=== PATIENT | female | born 1980 | race African-American/Black ===

== ENCOUNTER 2018-09-09 19:47 | Emergency (ER) | payer BC ==
[~2018-09-09] VITALS: Ht 172.7 cm; Wt 84.0 kg
[~2018-09-09 19:47] MED LIST: HYDR-523 PO; PNV1TABL76 PO
[2018-09-09] MEDS ORDERED: SODIUM CHLORIDE 0.9% 1,000 ML IV ONE (21:21)
[2018-09-09 22:38] LABS: BASOPHILS % 1.3 % (0.0-2.0); HEMATOCRIT. 33.3 % (36.0-48.0); HEMOGLOBIN. 10.3 g/dL (12.0-16.0); LYMPHOCYTES % 43.9 % (20.0-50.0); MEAN CORPUSCULAR VOLUME 67.7 fL (81.0-99.0); MEAN PLATELET VOLUME 9.1 fl (7.4-10.4); MONOCYTES % 6.5 % (2.0-8.0); NEUTROPHILS % 46.3 % (40.0-76.0); PLATELET 347 x1000/uL (130-400); RED BLOOD CELL COUNT 4.93 mill/uL (4.2-5.4); RED CELL DISTRIBUTION WIDTH 18.1 % (11.6-14.6)
[2018-09-09 22:42] LABS: CHLORIDE 108 mEq/L (98-107)
[2018-09-09] MEDS ORDERED: METOCLOPRAMIDE HCL 10MG/2ML VIAL IV ONE (23:00)
[2018-09-09] MEDS ORDERED: MORPHINE SULFATE 4 MG/ML CPJ (NOT FOR IM USE) IV ONE (23:00)
[2018-09-09 23:04] LABS: HCG SCREEN NEGATIVE
[2018-09-10] MEDS ORDERED: HYDROCODONE/ACETAMINOPHEN 5/325MG TABLET PO ONE (01:45)
[2018-09-10 02:58] VITALS: BP 135/85
== END 2018-09-10 02:59 | disposition home or self-care (01) ==
LOC: ER 20:58
DX: M79.10 Myalgia, unspecified site (principal); D64.9 Anemia, unspecified; D57.1 Sickle-cell disease without crisis; R19.7 Diarrhea, unspecified; Z88.8 Allergy status to other drugs, medicaments and biological substances
CPT/HCPCS: 36415; 80053; 84703; 85025; 85044; 93005; 96374; 96375; 99284; J2270; J2765; J7030

== ENCOUNTER 2018-11-29 17:16 | Emergency (ER) | payer BC ==
[~2018-11-29] VITALS: Ht 172.7 cm; Wt 84.0 kg
[2018-11-29] MEDS ORDERED: KETOROLAC 30MG/ML VIAL IV STA (23:19)
[2018-11-29] MEDS ORDERED: ONDANSETRON HCL 4MG/2ML INJ IV STA (23:19)
[2018-11-29] MEDS ORDERED: SODIUM CHLORIDE 0.9% 1,000 ML IV ONE (23:19)
[2018-11-29] MEDS ORDERED: MORPHINE SULFATE 4 MG/ML CPJ (NOT FOR IM USE) IV STA (23:19)
[2018-11-29 23:35] LABS: BASOPHILS % 1.2 % (0.0-2.0); CHLORIDE 106 mEq/L (98-107); HEMATOCRIT. 30.1 % (36.0-48.0); HEMOGLOBIN. 9.4 g/dL (12.0-16.0); LYMPHOCYTES % 44.1 % (20.0-50.0); MEAN CORPUSCULAR HEMOGLOBIN 21.3 pg (28.0-32.0); MEAN CORPUSCULAR VOLUME 68.3 fL (81.0-99.0); MEAN PLATELET VOLUME 8.9 fl (7.4-10.4); MONOCYTES % 7.1 % (2.0-8.0); NEUTROPHILS % 43.6 % (40.0-76.0); PLATELET 324 x1000/uL (130-400); RED BLOOD CELL COUNT 4.41 mill/uL (4.2-5.4); RED CELL DISTRIBUTION WIDTH 18.1 % (11.6-14.6)
[2018-11-29 23:39] LABS: CLARITY URINE CLEAR (CLEAR); COLOR URINE YELLOW (YELLOW); KETONES URINE NEGATIVE (NEGATIVE); LEUKOCYTE ESTERASE URINE NEGATIVE (NEGATIVE); NITRITE URINE NEGATIVE (NEGATIVE); OCCULT BLOOD URINE NEGATIVE (NEGATIVE); PROTEIN URINE NEGATIVE (NEGATIVE); SPECIFIC GRAVITY URINE 1.014 (1.005-1.030); UROBILINOGEN URINE 0.2 E.U./dL (0.2-1.0)
[2018-11-30 01:46] LABS: PLATELET ESTIMATE NORMAL
[2018-11-30 02:59] VITALS: BP 127/78
[2018-11-30] MEDS ORDERED: MORPHINE SULFATE 4 MG/ML CPJ (NOT FOR IM USE) IV ONE (03:00)
== END 2018-11-30 03:07 | disposition home or self-care (01) ==
LOC: ER 17:16
DX: D57.1 Sickle-cell disease without crisis (principal); M79.7 Fibromyalgia; D64.9 Anemia, unspecified; S92.422A Displaced fracture of distal phalanx of left great toe, initial encounter for closed fracture; W22.8XXA Striking against or struck by other objects, initial encounter; Y93.9 Activity, unspecified; Y92.9 Unspecified place or not applicable
CPT/HCPCS: 36415; 73660; 80053; 81003; 81025; 85025; 96374; 96375; 96376; 99284; J1885; J2270; J2405; J7030; Z7610

== ENCOUNTER 2019-03-06 13:13 | Emergency (ER) | payer BC ==
[~2019-03-06] VITALS: Ht 167.6 cm; Wt 82.0 kg
[2019-03-06] MEDS ORDERED: SODIUM CHLORIDE 0.9% 1,000 ML IV ONE (16:59)
[2019-03-06 18:02] LABS: BASOPHILS % 0.8 % (0.0-2.0); EOSINOPHILS % 3.4 % (0.0-5.0); HEMATOCRIT. 27.8 % (36.0-48.0); HEMOGLOBIN. 8.7 g/dL (12.0-16.0); LYMPHOCYTES % 27.8 % (20.0-50.0); MEAN CORPUSCULAR HEMOGLOBIN 21.3 pg (28.0-32.0); MEAN CORPUSCULAR VOLUME 68.2 fL (81.0-99.0); MEAN PLATELET VOLUME 8.9 fl (7.4-10.4); MONOCYTES % 7.5 % (2.0-8.0); NEUTROPHILS % 60.5 % (40.0-76.0); PLATELET 201 x1000/uL (130-400); RED BLOOD CELL COUNT 4.08 mill/uL (4.2-5.4); RED CELL DISTRIBUTION WIDTH 19.3 % (11.6-14.6)
[2019-03-06 18:05] LABS: CHLORIDE 108 mEq/L (98-107)
[2019-03-06 18:15] LABS: B-HCG QUANTITATIVE < 1 mIU/mL (<3)
[2019-03-06] MEDS ORDERED: ONDANSETRON HCL 4MG/2ML INJ IV STA (18:17)
[2019-03-06] MEDS ORDERED: MORPHINE SULFATE 4 MG/ML CPJ (NOT FOR IM USE) IV STA (18:17)
[2019-03-06 18:22] LABS: PLATELET ESTIMATE NORMAL
[2019-03-06 18:49] LABS: CLARITY URINE CLOUDY (CLEAR); COLOR URINE YELLOW (YELLOW); KETONES URINE TRACE (NEGATIVE); LEUKOCYTE ESTERASE URINE NEGATIVE (NEGATIVE); NITRITE URINE NEGATIVE (NEGATIVE); OCCULT BLOOD URINE 3+ (NEGATIVE); PH URINE 5.5 (4.5-8.0); PROTEIN URINE 1+ (NEGATIVE); SPECIFIC GRAVITY URINE 1.033 (1.005-1.030); UROBILINOGEN URINE 0.2 E.U./dL (0.2-1.0)
[2019-03-06] MEDS ORDERED: ACETAMINOPHEN WITH CODEINE 300/30MG TABLET PO ONE (19:30)
[2019-03-06] MEDS ORDERED: MORPHINE SULFATE 2 MG/ML CPJ (NOT FOR IM USE) IV ONE (20:00)
[2019-03-06 20:33] VITALS: BP 155/98
== END 2019-03-06 20:35 | disposition home or self-care (01) ==
LOC: ER 13:13
DX: N93.8 Other specified abnormal uterine and vaginal bleeding (principal); M79.10 Myalgia, unspecified site; Z79.899 Other long term (current) drug therapy
CPT/HCPCS: 36415; 76830; 76856; 80053; 81003; 84702; 85025; 85044; 86850; 86900; 86901; 96374; 96375; 96376; 99284; J2270; J2405; J7030; Z7610

== ENCOUNTER 2019-05-30 13:36 | Emergency (ER) | payer BC ==
[~2019-05-30] VITALS: Ht 172.7 cm; Wt 86.8 kg
[2019-05-30 13:43] VITALS: BP 124/68
[2019-05-30] MEDS ORDERED: HYDROCODONE/ACETAMINOPHEN 5/325MG TABLET PO ONE (14:45)
[2019-05-30 15:21] LABS: BASOPHILS % 0.9 % (0.0-2.0); EOSINOPHILS % 1.3 % (0.0-5.0); HEMATOCRIT. 29.3 % (36.0-48.0); HEMOGLOBIN. 9.1 g/dL (12.0-16.0); LYMPHOCYTES % 19.2 % (20.0-50.0); MEAN CORPUSCULAR HEMOGLOBIN 21.1 pg (28.0-32.0); MEAN CORPUSCULAR VOLUME 67.7 fL (81.0-99.0); MEAN PLATELET VOLUME 8.4 fl (7.4-10.4); MONOCYTES % 8.5 % (2.0-8.0); NEUTROPHILS % 70.1 % (40.0-76.0); PLATELET 139 x1000/uL (130-400); RED BLOOD CELL COUNT 4.33 mill/uL (4.2-5.4); RED CELL DISTRIBUTION WIDTH 18.6 % (11.6-14.6)
[2019-05-30 15:25] LABS: CHLORIDE 106 mEq/L (98-107)
[2019-05-30] MEDS ORDERED: ONDANSETRON 4MG ODT PO ONE (15:45)
[2019-05-30] MEDS ORDERED: MORPHINE SULFATE 10 MG/ML CPJ IM ONE (15:45)
[2019-05-30 15:47] LABS: PLATELET ESTIMATE NORMAL
[2019-05-30] MEDS ORDERED: ONDANSETRON HCL 4MG/2ML INJ IV ONE (17:45)
[2019-05-30] MEDS ORDERED: MORPHINE SULFATE 4 MG/ML CPJ (NOT FOR IM USE) IV ONE (17:45)
== END 2019-05-30 18:29 | disposition home or self-care (01) ==
LOC: ER 13:36
DX: S92.514A Nondisplaced fracture of proximal phalanx of right lesser toe(s), initial encounter for closed fracture (principal); M79.10 Myalgia, unspecified site; D57.40 Sickle-cell thalassemia without crisis; Z98.890 Other specified postprocedural states; W18.31XA Fall on same level due to stepping on an object, initial encounter; Y93.89 Activity, other specified; Y92.018 Other place in single-family (private) house as the place of occurrence of the external cause
CPT/HCPCS: 36415; 73630; 80053; 85025; 85044; 96374; 96375; 99284; J2270; J2405; Z7610; Q0162

== ENCOUNTER 2019-06-19 11:55 | Emergency (ER) | payer BC ==
[~2019-06-19] VITALS: Ht 172.7 cm; Wt 75.0 kg
[~2019-06-19 11:55] MED LIST changes: -PNV1TABL76 PO
[2019-06-19] MEDS ORDERED: MORPHINE SULFATE 4 MG/ML CPJ (NOT FOR IM USE) IV STA (12:23)
[2019-06-19] MEDS ORDERED: ONDANSETRON HCL 4MG/2ML INJ IV STA (12:23)
[2019-06-19] MEDS ORDERED: SODIUM CHLORIDE 0.9% 1,000 ML IV ONE (12:23)
[2019-06-19 13:52] LABS: BASOPHILS % 2.4 % (0.0-2.0); EOSINOPHILS % 1.7 % (0.0-5.0); HEMATOCRIT. 30.3 % (36.0-48.0); HEMOGLOBIN. 9.4 g/dL (12.0-16.0); LYMPHOCYTES % 35.2 % (20.0-50.0); MEAN CORPUSCULAR VOLUME 67.5 fL (81.0-99.0); MEAN PLATELET VOLUME 9.3 fl (7.4-10.4); MONOCYTES % 5.6 % (2.0-8.0); NEUTROPHILS % 55.1 % (40.0-76.0); PLATELET 297 x1000/uL (130-400); RED BLOOD CELL COUNT 4.49 mill/uL (4.2-5.4); RED CELL DISTRIBUTION WIDTH 18.6 % (11.6-14.6)
[2019-06-19 13:58] LABS: CHLORIDE 109 mEq/L (98-107)
[2019-06-19 14:11] LABS: HCG SCREEN NEGATIVE
[2019-06-19 14:29] LABS: PLATELET ESTIMATE NORMAL
[2019-06-19 14:33] LABS: CLARITY URINE CLEAR (CLEAR); COLOR URINE YELLOW (YELLOW); KETONES URINE NEGATIVE (NEGATIVE); LEUKOCYTE ESTERASE URINE 1+ (NEGATIVE); NITRITE URINE NEGATIVE (NEGATIVE); OCCULT BLOOD URINE NEGATIVE (NEGATIVE); PH URINE 5.5 (4.5-8.0); PROTEIN URINE NEGATIVE (NEGATIVE); SPECIFIC GRAVITY URINE 1.023 (1.005-1.030); UROBILINOGEN URINE 0.2 E.U./dL (0.2-1.0)
[2019-06-19] MEDS ORDERED: KETOROLAC 30MG/ML VIAL IV ONE (14:45)
[2019-06-19 15:01] LABS: INR 1.1; PROTHROMBIN TIME 11.6 sec (9.6-11.0)
[2019-06-19 15:10] LABS: *AMPHETAMINES SCREEN URINE NEGATIVE (NEGATIVE); *BARBITURATES SCREEN URINE NEGATIVE (NEGATIVE); *COCAINE SCREEN URINE NEGATIVE (NEGATIVE); METHADONE URINE SCREEN NEGATIVE (NEGATIVE)
[2019-06-19 15:11] LABS: CANNABINOID URINE SCREEN NEGATIVE (NEGATIVE); PHENCYCLIDINE URINE SCREEN NEGATIVE (NEGATIVE)
[2019-06-19 15:21] LABS: *BENZODIAZEPINES SCREEN URINE PRESUMTIVE POSITIVE (NEGATIVE); OPIATES URINE SCREEN PRESUMTIVE POSITIVE (NEGATIVE)
[2019-06-19] MEDS ORDERED: MORPHINE SULFATE 4 MG/ML CPJ (NOT FOR IM USE) IV ONE (16:00)
[2019-06-19] MEDS ORDERED: ONDANSETRON HCL 4MG/2ML INJ IV ONE (16:00)
[2019-06-19 16:38] VITALS: BP 120/69
== END 2019-06-19 16:57 | disposition home or self-care (01) ==
LOC: ER 11:55
DX: D57.00 Hb-SS disease with crisis, unspecified (principal); N39.0 Urinary tract infection, site not specified; G89.29 Other chronic pain; D64.9 Anemia, unspecified; R07.9 Chest pain, unspecified
CPT/HCPCS: 36415; 71045; 80053; 80305; 81003; 83690; 84484; 84703; 85025; 85044; 85610; 93005; 96374; 96375; 96376; 99285; J1885; J2270; J2405; J7030

== ENCOUNTER 2019-06-20 19:10 | Emergency (ER) | payer BC ==
[~2019-06-20] VITALS: Ht 172.7 cm; Wt 84.6 kg
[2019-06-20] MEDS ORDERED: HYDROCODONE/ACETAMINOPHEN 5/325MG TABLET PO STA (20:13)
[2019-06-20 20:41] LABS: CLARITY URINE CLOUDY (CLEAR); COLOR URINE YELLOW (YELLOW); KETONES URINE TRACE (NEGATIVE); LEUKOCYTE ESTERASE URINE 1+ (NEGATIVE); NITRITE URINE NEGATIVE (NEGATIVE); OCCULT BLOOD URINE NEGATIVE (NEGATIVE); PH URINE 5.5 (4.5-8.0); PROTEIN URINE 1+ (NEGATIVE); SPECIFIC GRAVITY URINE 1.031 (1.005-1.030); UROBILINOGEN URINE 0.2 E.U./dL (0.2-1.0)
[2019-06-20 20:47] LABS: BASOPHILS % 1.2 % (0.0-2.0); EOSINOPHILS % 3.4 % (0.0-5.0); HEMATOCRIT. 27.8 % (36.0-48.0); HEMOGLOBIN. 8.6 g/dL (12.0-16.0); LYMPHOCYTES % 34.7 % (20.0-50.0); MEAN CORPUSCULAR HEMOGLOBIN 20.7 pg (28.0-32.0); MEAN CORPUSCULAR VOLUME 66.7 fL (81.0-99.0); MEAN PLATELET VOLUME 7.8 fl (7.4-10.4); MONOCYTES % 6.4 % (2.0-8.0); NEUTROPHILS % 54.3 % (40.0-76.0); PLATELET 213 x1000/uL (130-400); RED BLOOD CELL COUNT 4.17 mill/uL (4.2-5.4); RED CELL DISTRIBUTION WIDTH 18.6 % (11.6-14.6)
[2019-06-20 20:51] LABS: CHLORIDE 108 mEq/L (98-107)
[2019-06-20 21:08] LABS: PLATELET ESTIMATE NORMAL
[2019-06-20] MEDS ORDERED: KETOROLAC 60MG/2ML VIAL IM ONE (22:15)
[2019-06-20 23:19] VITALS: BP 130/66
== END 2019-06-20 23:20 | disposition home or self-care (01) ==
LOC: ER 19:10
DX: N30.00 Acute cystitis without hematuria (principal); D57.00 Hb-SS disease with crisis, unspecified; M79.7 Fibromyalgia
CPT/HCPCS: 36415; 80053; 81003; 81025; 85025; 85044; 85660; 99283; J1885

== ENCOUNTER 2019-07-22 19:46 | Emergency (ER) | payer BC ==
[~2019-07-22] VITALS: Ht 172.7 cm; Wt 85.0 kg
[2019-07-22 22:12] LABS: BASOPHILS % 1.4 % (0.0-2.0); EOSINOPHILS % 1.8 % (0.0-5.0); HEMOGLOBIN. 9.5 g/dL (12.0-16.0); LYMPHOCYTES % 34.4 % (20.0-50.0); MEAN CORPUSCULAR HEMOGLOBIN 21.6 pg (28.0-32.0); MEAN CORPUSCULAR VOLUME 68.6 fL (81.0-99.0); MEAN PLATELET VOLUME 10.3 fl (7.4-10.4); MONOCYTES % 7.3 % (2.0-8.0); NEUTROPHILS % 55.1 % (40.0-76.0); PLATELET 214 x1000/uL (130-400); RED BLOOD CELL COUNT 4.37 mill/uL (4.2-5.4); RED CELL DISTRIBUTION WIDTH 20.4 % (11.6-14.6)
[2019-07-22 22:13] LABS: CLARITY URINE CLEAR (CLEAR); COLOR URINE YELLOW (YELLOW); KETONES URINE TRACE (NEGATIVE); LEUKOCYTE ESTERASE URINE NEGATIVE (NEGATIVE); NITRITE URINE NEGATIVE (NEGATIVE); OCCULT BLOOD URINE NEGATIVE (NEGATIVE); PH URINE 7.5 (4.5-8.0); PROTEIN URINE NEGATIVE (NEGATIVE)
[2019-07-22 22:15] LABS: CHLORIDE 109 mEq/L (98-107)
[2019-07-22] MEDS ORDERED: KETOROLAC 30MG/ML VIAL IV ONE (22:30)
[2019-07-22] MEDS ORDERED: MORPHINE SULFATE 4 MG/ML CPJ (NOT FOR IM USE) IV ONE (22:30)
[2019-07-22 22:35] LABS: PLATELET ESTIMATE NORMAL
[2019-07-23] MEDS ORDERED: MORPHINE SULFATE 4 MG/ML CPJ (NOT FOR IM USE) IV ONE
[2019-07-23 01:12] VITALS: BP 131/95
== END 2019-07-23 01:11 | disposition home or self-care (01) ==
LOC: ER 19:46
DX: D57.419 Sickle-cell thalassemia, unspecified, with crisis (principal); R03.0 Elevated blood-pressure reading, without diagnosis of hypertension
CPT/HCPCS: 36415; 80053; 81003; 81025; 85025; 85044; 96374; 96375; 96376; 99285; J1885; J2270; 99284

== ENCOUNTER 2019-07-25 02:09 | Emergency (ER) | payer BC ==
[~2019-07-25] VITALS: Ht 172.7 cm; Wt 85.0 kg
[2019-07-25 04:55] LABS: BASOPHILS % 1.2 % (0.0-2.0); EOSINOPHILS % 1.4 % (0.0-5.0); HEMATOCRIT. 24.2 % (36.0-48.0); HEMOGLOBIN. 7.6 g/dL (12.0-16.0); LYMPHOCYTES % 45.2 % (20.0-50.0); MEAN CORPUSCULAR HEMOGLOBIN 21.3 pg (28.0-32.0); MEAN CORPUSCULAR VOLUME 67.6 fL (81.0-99.0); MEAN PLATELET VOLUME 8.8 fl (7.4-10.4); MONOCYTES % 8.4 % (2.0-8.0); NEUTROPHILS % 43.8 % (40.0-76.0); PLATELET 149 x1000/uL (130-400); RED BLOOD CELL COUNT 3.58 mill/uL (4.2-5.4); RED CELL DISTRIBUTION WIDTH 19.9 % (11.6-14.6)
[2019-07-25 04:58] LABS: CHLORIDE 110 mEq/L (98-107)
[2019-07-25 05:01] LABS: PLATELET ESTIMATE NORMAL
[2019-07-25 05:15] LABS: CLARITY URINE CLEAR (CLEAR); COLOR URINE YELLOW (YELLOW); KETONES URINE NEGATIVE (NEGATIVE); LEUKOCYTE ESTERASE URINE NEGATIVE (NEGATIVE); NITRITE URINE NEGATIVE (NEGATIVE); OCCULT BLOOD URINE NEGATIVE (NEGATIVE); PROTEIN URINE NEGATIVE (NEGATIVE); SPECIFIC GRAVITY URINE 1.013 (1.005-1.030); UROBILINOGEN URINE 0.2 E.U./dL (0.2-1.0)
[2019-07-25] MEDS ORDERED: KETOROLAC 30MG/ML VIAL IV ONE (05:15)
[2019-07-25] MEDS ORDERED: MORPHINE SULFATE 4 MG/ML CPJ (NOT FOR IM USE) IV ONE (06:00)
[2019-07-25 06:24] VITALS: BP 122/82
== END 2019-07-25 06:30 | disposition home or self-care (01) ==
LOC: ER 02:09
DX: D57.419 Sickle-cell thalassemia, unspecified, with crisis (principal); Z98.890 Other specified postprocedural states; Z79.899 Other long term (current) drug therapy
CPT/HCPCS: 36415; 80053; 81003; 81025; 85025; 85044; 96374; 96375; 99284; J1885; J2270

== ENCOUNTER 2019-12-30 12:26 | Emergency (ER) | payer BC ==
[~2019-12-30] VITALS: Ht 172.7 cm; Wt 84.0 kg
[2019-12-30] MEDS ORDERED: ONDANSETRON 4MG ODT PO STA (14:35)
[2019-12-30] MEDS ORDERED: KETOROLAC 60MG/2ML VIAL IM STA (14:35)
[2019-12-30] MEDS ORDERED: SODIUM CHLORIDE 0.9% 1,000 ML IV ONE (14:45)
[2019-12-30] MEDS ORDERED: MORPHINE SULFATE 10 MG/ML CPJ IM ONE (14:45)
[2019-12-30 15:32] LABS: CLARITY URINE CLOUDY (CLEAR); COLOR URINE ORANGE (YELLOW); KETONES URINE NEGATIVE (NEGATIVE); LEUKOCYTE ESTERASE URINE 1+ (NEGATIVE); NITRITE URINE NEGATIVE (NEGATIVE); OCCULT BLOOD URINE 3+ (NEGATIVE); PH URINE 8.5 (4.5-8.0); PROTEIN URINE 2+ (NEGATIVE); SPECIFIC GRAVITY URINE 1.026 (1.005-1.030)
[2019-12-30 16:01] LABS: BASOPHILS % 1.2 % (0.0-2.0); EOSINOPHILS % 2.7 % (0.0-5.0); HEMATOCRIT. 25.3 % (36.0-48.0); LYMPHOCYTES % 39.6 % (20.0-50.0); MEAN CORPUSCULAR HEMOGLOBIN 21.3 pg (28.0-32.0); MEAN CORPUSCULAR VOLUME 67.2 fL (81.0-99.0); MEAN PLATELET VOLUME 10.2 fl (7.4-10.4); MONOCYTES % 5.8 % (2.0-8.0); NEUTROPHILS % 50.7 % (40.0-76.0); PLATELET 267 x1000/uL (130-400); RED BLOOD CELL COUNT 3.77 mill/uL (4.2-5.4); RED CELL DISTRIBUTION WIDTH 21.4 % (11.6-14.6)
[2019-12-30 16:05] LABS: CHLORIDE 111 mEq/L (98-107)
[2019-12-30] MEDS ORDERED: DIPHENHYDRAMINE 50MG/ML VIAL IV NR (16:30)
[2019-12-30 16:34] LABS: HCG SCREEN NEGATIVE
[2019-12-30] MEDS ORDERED: MORPHINE SULFATE 4 MG/ML CPJ (NOT FOR IM USE) IV ONE (17:45)
[2019-12-30 18:02] LABS: PLATELET ESTIMATE NORMAL
[2019-12-30 18:30] VITALS: BP 125/82
== END 2019-12-30 18:55 | disposition home or self-care (01) ==
LOC: ER 12:41
DX: M79.18 Myalgia, other site (principal); M54.31 Sciatica, right side; D64.9 Anemia, unspecified
CPT/HCPCS: 36415; 80053; 81003; 81025; 84703; 85025; 85044; 96361; 96372; 96374; 96375; 99284; J1200; J1885; J2270; J7030; Q0162

== ENCOUNTER 2020-01-30 01:47 | Emergency (ER) | payer BC ==
[~2020-01-30] VITALS: Ht 172.7 cm; Wt 82.0 kg
[2020-01-30 02:43] VITALS: BP 117/68
[2020-01-30] MEDS ORDERED: HYDROCODONE/ACETAMINOPHEN 10/325MG TABLET PO ONE (04:00)
== END 2020-01-30 05:10 | disposition left against medical advice (07) ==
LOC: ER 01:47
DX: D57.00 Hb-SS disease with crisis, unspecified (principal); M79.7 Fibromyalgia
CPT/HCPCS: 99282

== ENCOUNTER 2020-02-28 15:30 | Inpatient (IN) | payer BC ==
[~2020-02-28] VITALS: Ht 172.7 cm; Wt 81.6 kg
[2020-02-28] MEDS: LORAZEPAM 2MG/ML CPJ IV PRN
[2020-02-28 17:22] LABS: HEMATOCRIT. 24.4 % (36.0-48.0); HEMOGLOBIN. 7.5 g/dL (12.0-16.0); MEAN CORPUSCULAR HEMOGLOBIN 20.8 pg (28.0-32.0); MEAN CORPUSCULAR VOLUME 67.4 fL (81.0-99.0); MEAN PLATELET VOLUME 8.7 fl (7.4-10.4); PLATELET 240 x1000/uL (130-400); RED BLOOD CELL COUNT 3.62 mill/uL (4.2-5.4); RED CELL DISTRIBUTION WIDTH 20.1 % (11.6-14.6)
[2020-02-28 17:30] LABS: CHLORIDE 108 mEq/L (98-107); HCG SCREEN NEGATIVE
[2020-02-28 17:38] LABS: PROTHROMBIN TIME 10.5 sec (9.6-11.0)
[2020-02-28 17:58] LABS: PLATELET ESTIMATE NORMAL
[2020-02-28] MEDS ORDERED: ONDANSETRON HCL 4MG/2ML INJ IV STA (18:02)
[2020-02-28] MEDS ORDERED: MORPHINE SULFATE 4 MG/ML CPJ (NOT FOR IM USE) IV STA (18:02)
[2020-02-28] MEDS ORDERED: DIPHENHYDRAMINE 25MG CAPSULE PO ONE (19:15)
[2020-02-28] MEDS: MORPHINE SULFATE 4 MG/ML CPJ (NOT FOR IM USE) IV PRN (21:27)
[2020-02-28] MEDS: DIPHENHYDRAMINE 50MG/ML VIAL IV PRN (21:28)
[2020-02-28] MEDS: HYDROCODONE/ACETAMINOPHEN 10/325MG TABLET PO PRN (21:41)
[2020-02-29] MEDS: DIPHENHYDRAMINE 50MG/ML VIAL IV PRN ×2 (01:41→06:43)
[2020-02-29] MEDS: MORPHINE SULFATE 4 MG/ML CPJ (NOT FOR IM USE) IV PRN ×3 (01:41→10:59)
[2020-02-29] MEDS: LORAZEPAM 2MG/ML CPJ IV PRN ×2 (01:43→05:48)
[2020-02-29] MEDS: HYDROCODONE/ACETAMINOPHEN 10/325MG TABLET PO PRN ×3 (04:41→09:17)
[2020-02-29] MEDS ORDERED: SODIUM CHLORIDE 0.45% 1,000 ML IV SCH (11:00)
[2020-02-29] MEDS ORDERED: HYDROMORPHONE HCL/PF 2MG/ML CPJ IV NR (11:00)
[2020-02-29] MEDS ORDERED: FOLIC ACID 1MG TABLET PO SCH (11:00)
[2020-02-29 12:00] VITALS: BP 131/93
[2020-02-29 12:30] VITALS: BP 131/93
[2020-02-29 12:57] VITALS: BP 131/93
[2020-02-29] MEDS ORDERED: DIPHENHYDRAMINE 50MG CAPSULE PO PRN (14:00)
== END 2020-02-29 14:00 | disposition left against medical advice (07) | DRG 812 ==
LOC: ER 15:30 → MICUSO 19:09 → 6EST 02-29 11:20
PROVIDERS: ADMIT Internal Medicine; ATTEND Internal Medicine
DX: D57.00 Hb-SS disease with crisis, unspecified (principal); E87.8 Other disorders of electrolyte and fluid balance, not elsewhere classified; M79.7 Fibromyalgia; N92.0 Excessive and frequent menstruation with regular cycle; Z76.5 Malingerer [conscious simulation]; Z79.891 Long term (current) use of opiate analgesic; Z79.899 Other long term (current) drug therapy
CPT/HCPCS: 36415; 80053; 84703; 85025; 85044; 99285; J1170; J1200; J2060; J2270; J2405; Q0163

== ENCOUNTER 2020-06-02 08:16 | Emergency (ER) | payer BC ==
[~2020-06-02] VITALS: Ht 172.7 cm; Wt 86.0 kg
[2020-06-02] MEDS ORDERED: MORPHINE SULFATE 4 MG/ML CPJ (NOT FOR IM USE) IV STA (08:31)
[2020-06-02] MEDS ORDERED: ONDANSETRON HCL 4MG/2ML INJ IV STA (08:31)
[2020-06-02] MEDS ORDERED: ACETAMINOPHEN 325MG TABLET PO STA (08:31)
[2020-06-02] MEDS ORDERED: SODIUM CHLORIDE 0.9% 1000ML BAG (SEPSIS BOLUS) IV ONE (08:45)
[2020-06-02 09:26] LABS: BASOPHILS % 1.2 % (0.0-2.0); EOSINOPHILS % 1.4 % (0.0-5.0); HEMATOCRIT. 29.3 % (36.0-48.0); HEMOGLOBIN. 8.8 g/dL (12.0-16.0); LYMPHOCYTES % 38.2 % (20.0-50.0); MEAN CORPUSCULAR HEMOGLOBIN 19.6 pg (28.0-32.0); MEAN CORPUSCULAR VOLUME 65.4 fL (81.0-99.0); MEAN PLATELET VOLUME 8.4 fl (7.4-10.4); NEUTROPHILS % 53.2 % (40.0-76.0); PLATELET 477 x1000/uL (130-400); RED BLOOD CELL COUNT 4.48 mill/uL (4.2-5.4)
[2020-06-02 10:36] LABS: CLARITY URINE CLOUDY (CLEAR); COLOR URINE YELLOW (YELLOW); KETONES URINE NEGATIVE (NEGATIVE); LEUKOCYTE ESTERASE URINE TRACE (NEGATIVE); NITRITE URINE NEGATIVE (NEGATIVE); OCCULT BLOOD URINE NEGATIVE (NEGATIVE); PROTEIN URINE NEGATIVE (NEGATIVE); SPECIFIC GRAVITY URINE 1.011 (1.005-1.030); UROBILINOGEN URINE 0.2 E.U./dL (0.2-1.0)
[2020-06-02 10:37] LABS: PLATELET ESTIMATE INCREASED
[2020-06-02 10:43] LABS: CHLORIDE 112 mEq/L (98-107)
[2020-06-02] MEDS ORDERED: NITROFURANTOIN 100MG M/M CAPSULE PO ONE (10:45)
[2020-06-02 11:15] VITALS: BP 127/92
[2020-06-02] MEDS ORDERED: MORPHINE SULFATE 4 MG/ML CPJ (NOT FOR IM USE) IV ONE (11:15)
[2020-06-02] MEDS ORDERED: NITR-87 MT (11:23)
== END 2020-06-02 12:20 | disposition home or self-care (01) ==
LOC: ER 08:16 → CANBEDREQ 11:41 → ER 12:20
DX: D57.00 Hb-SS disease with crisis, unspecified (principal); N39.0 Urinary tract infection, site not specified; R07.89 Other chest pain; M79.602 Pain in left arm; M79.601 Pain in right arm; M79.7 Fibromyalgia
CPT/HCPCS: 36415; 80053; 81003; 83605; 84145; 84484; 85025; 85044; 85610; 86850; 86900; 86901; 87040; 87086; 93005; 96361; 96374; 96375; 96376; 99284; C9803; J2270; J2405; J7030; J7040; U0003

== ENCOUNTER 2020-10-27 13:54 | Emergency (ER) | payer BC ==
[~2020-10-27] VITALS: Ht 165.1 cm; Wt 77.0 kg
[~2020-10-27 13:54] MED LIST changes: +NITR-87 MT
[2020-10-27] MEDS ORDERED: MORPHINE SULFATE 4 MG/ML CPJ (NOT FOR IM USE) IV STA (16:10)
[2020-10-27] MEDS ORDERED: ONDANSETRON HCL 4MG/2ML INJ IV STA (16:10)
[2020-10-27] MEDS ORDERED: SODIUM CHLORIDE 0.9% 1,000 ML IV ONE (16:15)
[2020-10-27] MEDS ORDERED: MORPHINE SULFATE 2 MG/ML CPJ (NOT FOR IM USE) IV NR (16:35)
[2020-10-27 16:49] LABS: CHLORIDE 111 mEq/L (98-107)
[2020-10-27 16:51] LABS: BASOPHILS % 1.1 % (0.0-2.0); EOSINOPHILS % 2.4 % (0.0-5.0); HEMOGLOBIN. 9.7 g/dL (12.0-16.0); MEAN CORPUSCULAR HEMOGLOBIN 20.3 pg (28.0-32.0); MEAN CORPUSCULAR VOLUME 64.7 fL (81.0-99.0); MEAN PLATELET VOLUME 9.9 fl (7.4-10.4); MONOCYTES % 6.5 % (2.0-8.0); PLATELET 300 x1000/uL (130-400); RED BLOOD CELL COUNT 4.79 mill/uL (4.2-5.4); RED CELL DISTRIBUTION WIDTH 19.7 % (11.6-14.6)
[2020-10-27 16:54] LABS: HCG SCREEN NEGATIVE
[2020-10-27 17:14] LABS: PLATELET ESTIMATE NORMAL
[2020-10-27] MEDS ORDERED: DIPHENHYDRAMINE 50MG/ML VIAL IV ONE (17:15)
[2020-10-27] MEDS ORDERED: HYDROCODONE/ACETAMINOPHEN 5/325MG TABLET PO ONE (17:45)
[2020-10-27 18:22] VITALS: BP 150/100
== END 2020-10-27 18:25 | disposition home or self-care (01) ==
LOC: ER 13:54
DX: M79.7 Fibromyalgia (principal); D57.1 Sickle-cell disease without crisis; Z88.5 Allergy status to narcotic agent
CPT/HCPCS: 36415; 80053; 84703; 85025; 85044; 96374; 96375; 99284; J1200; J2270; J2405; J7030

== ENCOUNTER 2021-03-29 13:58 | Emergency (ER) | payer BC ==
[~2021-03-29] VITALS: Ht 172.7 cm; Wt 91.0 kg
[2021-03-29] MEDS ORDERED: SODIUM CHLORIDE 0.9% 1,000 ML IV ONE (14:15)
[2021-03-29] MEDS ORDERED: MORPHINE SULFATE 4 MG/ML CPJ (NOT FOR IM USE) IV STA (14:32)
[2021-03-29] MEDS ORDERED: ONDANSETRON HCL 4MG/2ML INJ IV STA (14:32)
[2021-03-29] MEDS ORDERED: KETOROLAC 30MG/ML VIAL IV STA (14:32)
[2021-03-29] MEDS ORDERED: DIPHENHYDRAMINE 50MG/ML VIAL IV ONE ×2 (14:45→17:30)
[2021-03-29 16:18] LABS: BASOPHILS % 0.6 % (0.0-2.0); EOSINOPHILS % 0.4 % (0.0-5.0); HEMOGLOBIN. 9.5 g/dL (12.0-16.0); LYMPHOCYTES % 24.5 % (20.0-50.0); MEAN CORPUSCULAR HEMOGLOBIN 20.3 pg (28.0-32.0); MEAN CORPUSCULAR VOLUME 65.9 fL (81.0-99.0); MEAN PLATELET VOLUME 9.2 fl (7.4-10.4); MONOCYTES % 7.1 % (2.0-8.0); NEUTROPHILS % 67.4 % (40.0-76.0); PLATELET 308 x1000/uL (130-400); RED CELL DISTRIBUTION WIDTH 18.7 % (11.6-14.6)
[2021-03-29 16:22] LABS: CHLORIDE 110 mEq/L (98-107)
[2021-03-29] MEDS ORDERED: POTASSIUM CHLORIDE 20MEQ TABLET SR PO ONE (16:30)
[2021-03-29 16:39] LABS: CLARITY URINE CLOUDY (CLEAR); COLOR URINE YELLOW (YELLOW); KETONES URINE TRACE (NEGATIVE); LEUKOCYTE ESTERASE URINE 2+ (NEGATIVE); NITRITE URINE NEGATIVE (NEGATIVE); OCCULT BLOOD URINE NEGATIVE (NEGATIVE); PROTEIN URINE TRACE (NEGATIVE); SPECIFIC GRAVITY URINE 1.026 (1.005-1.030); UROBILINOGEN URINE 0.2 E.U./dL (0.2-1.0)
[2021-03-29] MEDS ORDERED: MORPHINE SULFATE 10 MG/ML CPJ IV ONE (17:30)
[2021-03-29] MEDS ORDERED: NITR-87 MT (18:11)
[2021-03-29] MEDS ORDERED: HYDR-4001 MT (18:11)
[2021-03-29 18:26] LABS: PLATELET ESTIMATE NORMAL
[2021-03-29 19:46] VITALS: BP 136/90
== END 2021-03-29 20:14 | disposition home or self-care (01) ==
LOC: ER 13:58
DX: D57.00 Hb-SS disease with crisis, unspecified (principal); N39.0 Urinary tract infection, site not specified; M79.7 Fibromyalgia; Z79.899 Other long term (current) drug therapy
CPT/HCPCS: 36415; 80053; 81003; 85025; 85044; 93005; 96361; 96374; 96375; 96376; 99284; J1200; J1885; J2270; J2405; J7030